=== PATIENT | female | born 2000 | race Caucasian/White ===

== ENCOUNTER 2023-08-13 08:06 | Emergency (ER) | payer BC, SELFPAY ==
[2023-08-13 08:13] VITALS: BP 156/102
[2023-08-13 08:37] LABS: Glucose - Point of Care 73 mg/dl (70-99)
--- NOTE | 2023-08-13 09:00 | ED.GENMED ---
History of Present Illness
General
Chief Complaint: Anxiety
Source: patient and family
Exam Limitations: none
Time Seen by Provider: 08/13/23 08:44
Nursing documentation reviewed up to this point in time: agreed with
Travel History
Have you had any contact with someone who has COVID-19?: No
Do you have any symptoms of coronavirus? Fever > 100 degrees, chills, cough, shortness of breath, sore throat, loss of taste or smell, muscle aches, or headache?: No
History of Present Illness
History of Present Illness:
Patient is a 23-year-old female with a history of diabetes for the past 15 years and over the past 2 weeks has had increasing anxiety and sadness after breaking up with her boyfriend. Patient is having trouble sleeping. Patient's blood sugars
occasionally have gone to 200 but for the most part have been in the 100s. Patient denies fever or chills. Patient denies any GI or symptoms. Patient has been attending to daily activities of living by bathing and eating as well as checking
her blood sugars. Patient 2 weeks ago was switched from Lexapro to Abilify. Patient denies any suicidal homicidal ideation.
Past History
Past History
ED Past Medical History: IDDM and Psychiatric (Bipolar, anxiety, ADHD)
Social History
Tobacco: Non-smoker
Review of Systems
Review of Systems
All Other Systems: Not applicable
Phy Exam
Physical Exam
Physical Exam:
Physical Exam
General: No apparent moderate distress, alert and tearful, well nourished, well hydrated
HENT: Normocephalic, supple
Eyes: Clear sclera, conjuctiva without injection
Lungs: No respiratory distress, no stridor
Neuro: Alert and oriented x 3, CN II - XII intact, no motor focality, no cerebellar dysfunction
Skin: no rash
Psychiatric: well kept. interactive and cooperative but sad and anxious
Extremities: No edema, cyanosis
Scores
Heart Failure Risk
Heart Failure Risk Score: Not Applicable
Heart Score for Chest Pain Patients
STEMI patient?: Not applicable
Withdrawal Assessment of Alcohol
Withdrawal Assessment Completed?: Not applicable
Course
Orders/Labs/Results
Orders:
Orders
08/13/23 08:23
Test Result ONCE
08/13/23 08:55
Crisis Consult Urgent
Reason for Consult: anxiety, depression
HydrOXYZINE [Atarax] 12.5 mg PO NOW STA
Lorazepam [Ativan] 1 mg PO NOW STA
08/13/23 09:16
Complete Blood Count/With Diff Urgent
Comprehensive Metabolic Panel Urgent
HCG, Serum Qualitative Screen Urgent
Abnormal Lab Results
08/13/23
09:16
Hgb 16.3 H g/dL
(12.0-16.0)
Potassium 3.3 L mmol/L
(3.5-5.1)
Glucose 56 L mg/dl
(70-99)
Calcium 10.8 H mg/dl
(8.4-10.2)
Total Bilirubin 2.3 H mg/dl
(0.2-1.3)
Total Protein 9.3 H g/dl
(6.3-8.2)
Albumin 5.9 H g/dl
(3.5-5.0)
08/13/23 09:16
08/13/23 09:16
Vital Signs
Initial and Last Documented VS:
Initial Vital Signs
Temp Pulse Resp BP Pulse Ox
98.0 F 116 18 156/102 100
08/13/23 08:13 08/13/23 08:13 08/13/23 08:13 08/13/23 08:13 08/13/23 08:13
Last Documented Vital Signs
Temp Pulse Resp BP Pulse Ox
98.0 F 116 18 156/102 100
08/13/23 08:13 08/13/23 08:13 08/13/23 08:13 08/13/23 08:13 08/13/23 08:13
*Radiology
Radiology exam reviewed: other (na)
*Pulse Oximetry
Patient hypoxic: no
*EKG
Interpreted by ED Provider?: NA
*Community Health Worker Interpretation
Rate: Community Health Worker- N/A
*Critical Care Note
Total Time (30-74mins, 75-104mins- exclusive of procedures): Not Applicable
Update Note
Update Note:
Patient seen by crisis and set up for partial hospitalization where they will adjust her medications. Patient's blood sugar is mildly low as well as her potassium. Patient will be discharged
ED Attending Note
-
Portions of this chart may have been created with voice recognition software.� Occasional wrong word or��sound alike� substitutions may have occurred due to the inherent limitations of voice recognition software.
Discharge Plan
Departure
Patient Disposition: Home (Routine Discharge)
Date of Disposition: 08/13/23
Time of Disposition: 11:05
Patient with high blood pressure during this ER visit?: Yes
Condition: Fair
Covid-19: Not Applicable
Discharge Problem:
Anxiety and depression, Hypoglycemia
Instructions: Depression, Adult (DC), Anxiety, Adult (DC), BLOOD PRESSURE
Prescriptions:
New
hydroxyzine pamoate [Vistaril] 25 mg capsule
25 mg PO QID PRN (Reason: anxiety, insomnia) Qty: 20 0RF
Referrals:
Tor Dimas IV, MD [Family Provider] - Follow up in 5-7 days
Activity Restrictions/Additional Instructions:
Follow-up with the outpatient psychiatric care. They will adjust her medication. Make sure to check your sugars and to eat regularly.
Interventions
Interventions:
*General Assessment Last Done: 08/13/23 08:13
*Neglect/Abuse Screening Last Done: 08/13/23 08:13
ED- Fall Risk Assessment Last Done: 08/13/23 09:35
*ED COVID-19 Vaccine History Last Done: 08/13/23 09:35
ED-Psychological Assessment Last Done: 08/13/23 09:35
Discharge Date and Time
Print Language: ALGERIAN
[2023-08-13] MEDS: ATIVAN 1 MG PO (09:05)
[2023-08-13] MEDS: ATARAX 12.5 MG PO (09:05)
[2023-08-13 09:25] LABS: % Basophils 0.9 % (0-2); % Eosinophils 0.6 % (0-6); % Immature Granulocytes 0.3 % (0-0.5); % Lymphocytes 35.7 % (20.5-51.1); % Monocytes 7.8 % (1.7-9.3); % Neutrophils 54.7 % (42.2-75.2); Absolute Basophils 0.1 10^3/uL (0-0.2); Absolute Eosinophils 0.1 10^3/uL (0-0.7); Absolute Lymphocytes 2.8 10^3/uL (1.2-3.4); Absolute Monocytes 0.6 10^3/uL (0.1-0.6); Absolute Neutrophils 4.3 10^3/uL (1.4-6.5); Hematocrit 46.7 % (37.0-47.0); Hemoglobin 16.3 g/dL (12.0-16.0); Mean Corp Hgb Conc. 34.9 g/dL (33.0-37.0); Mean Corpuscular Hgb 30.6 pg (27.0-31.0); Mean Corpuscular Volume 87.6 fL (81.0-99.0); Mean Platelet Volume 9.6 fL (7.4-10.4); Nucleated Red Blood Cells % 0 %; Platelet Count 325 10^3/uL (130-400); Red Blood Cell Count 5.33 10^6/uL (4.20-5.40); Red Cell Dist. Width 11.8 % (11.5-14.5); White Blood Cell Count 7.9 10^3/uL (4.8-10.8)
[2023-08-13 09:32] LABS: HCG, Serum Qualitative Screen Negative
[2023-08-13 09:36] LABS: ALT (SGPT) 31 U/L (0-35); AST (SGOT) 36 U/L (14-36); Albumin 5.9 g/dl (3.5-5.0); Alkaline Phosphatase 61 U/L (38-126); Blood Urea Nitrogen 7 mg/dl (7-17); Calcium 10.8 mg/dl (8.4-10.2); Carbon Dioxide 25 mmol/L (22-30); Chloride 102 mmol/L (98-107); Glucose 56 mg/dl (70-99); Potassium 3.3 mmol/L (3.5-5.1); Sodium 139 mmol/L (135-145); Total Bilirubin 2.3 mg/dl (0.2-1.3); Total Protein 9.3 g/dl (6.3-8.2); eGFR > 60.00
[2023-08-13 11:05] LABS: Glucose - Point of Care 162 mg/dl (70-99)
[2023-08-13] MEDS: KCL 40 MEQ PO (11:31)
== END 2023-08-13 11:35 | disposition home or self-care (01) ==
LOC: EMR 08:06
PROVIDERS: Emergency Medicine; EMERGENCY PHYSICIAN Emergency Medicine; FAMILY PHYSICIAN Family Medicine
DX: F41.9 Anxiety disorder, unspecified (principal); F32.A Depression, unspecified; E11.649 Type 2 diabetes mellitus with hypoglycemia without coma; F31.9 Bipolar disorder, unspecified; F90.9 Attention-deficit hyperactivity disorder, unspecified type; Z79.4 Long term (current) use of insulin
CPT/HCPCS: 99283; 80053; 82962; 84703; 85025